=== PATIENT | female | born 1995 | race Caucasian/White ===

== ENCOUNTER → 2016-10-20 | Outpatient (CLI) | payer BC ==
[~2016-10-20] MED LIST: DIPROLENE 0.05%50 GM TP; NUVARING VAG RING VG
== END ==
LOC: COL.RAD 14:38
DX: E04.2 Nontoxic multinodular goiter (principal)

== ENCOUNTER → 2016-11-21 | Outpatient (CLI) | payer BC ==
[~2016-11-21] VITALS: Ht 167.6 cm; Wt 64.0 kg
[2016-11-21 06:58] VITALS: BP 116/81; PULSE 91
== END ==
LOC: COL.RAD 11-17 13:30
DX: E04.1 Nontoxic single thyroid nodule (principal)
CPT/HCPCS: 13756

== ENCOUNTER → 2017-06-16 | Outpatient (CLI) | payer BC | LOC: COL.RAD 06-13 09:45 | DX: E04.1 Nontoxic single thyroid nodule (principal); D34 Benign neoplasm of thyroid gland ==